=== PATIENT | male | born 1990 | race African-American/Black ===

== ENCOUNTER → 2019-08-30 11:51 | Outpatient (CLI) | payer MEDICAID, SELFPAY ==
[2019-08-30 14:05] LABS: Absolute Lymphocyte Count 2.45 X10^3/uL (0.83-4.51); Absolute Neutrophil Count 5.8 X10^3/uL (2.0-7.7); Basophil# 0.05 X10^3/uL; Basophil% 0.5 % (0-1); Eosinophil# 0.46 X10^3/uL; Eosinophils% 4.9 % (0-5); Hematocrit 46.7 % (40-54); Hemoglobin 15.1 g/dL (13.0-16.5); Lymphocyte # 2.45 X10^3/ul (4.0); Mean Corp Hgb Conc 32.3 g/dL (32-36); Mean Corpuscular Hgb 26.9 pg (27.0-32.0); Mean Corpuscular Volume 83.1 fL (80-94); Mean Platelet Vol. 10.2 fl (6.2-12.0); Monocyte# 0.63 X10^3/uL; Monocyte% 6.7 % (0-10); NRBC Flagged by Analyzer 0 % (0-5); Neutrophil % 61.5 % (47-70); Platelet Count 347 K/mm3 (150-450); RBC Distribution Width CV 13.7 % (11.6-14.6); Red Blood Count 5.62 M/mm3 (4.6-6.2); White Blood Count 9.4 K/mm3 (4.4-11.0)
[2019-08-30 14:39] LABS: ALB/GLOB Ratio 0.8 RATIO (0.9-2.4); AST(SGOT) 16 U/L (15-37); Alanine Aminotransfer ALT/SGPT 25 U/L (16-61); Albumin, Serum 3.9 g/dL (3.2-5.0); Alkaline Phosphatase 101 U/L (45-117); Anion Gap 5 (5-15); BUN 11 mg/dL (7-18); BUN/Creat Ratio 14.1 RATIO (10-20); Calcium,Total 9.4 mg/dL (8.5-10.1); Chloride 103 mmol/L (98-107); Creatinine, Serum 0.78 mg/dL (0.70-1.30); EST Glomerular Filtration Rate 124 mL/min (>60); Est Glom Filt Rate - Afr Amer 149 mL/min (>60); Globulin 4.8 g/dL (2.2-4.2); Glucose 76 mg/dL (74-106); Potassium 3.8 mmol/L (3.5-5.1); Protein, Total 8.7 g/dL (6.4-8.2); Sodium Level 139 mmol/L (136-145)
[2019-08-30 15:11] LABS: HIV - WCH Non-Reactive (Nonreactive); Hepatitis B Surface Antibody Reactive; Hepatitis B Surface Antigen Non-Reactive (Nonreactive); Hepatitis C Antibody Non-Reactive (Nonreactive); Vitamin B12 444 pg/mL (211-911)
[2019-09-01 12:10] LABS: Hepatitis B Core Ab Total Negative (Negative)
[2019-09-02 05:06] LABS: QNTFERON TB Mitogen Value > 10.00 IU/mL (.); QNTFERON TB Nil Value 0.04 IU/mL (.); QNTFERON TB1+ Ag Value 0.03 IU/mL (.); QNTFERON TB2+ Ag Value 0.05 IU/mL (.)
[2019-09-04 20:21] LABS: Hepatitis B Core AB IgM Negative (Negative); QNTIFERON TB Positive Criteria Negative (Negative); Zinc, Plasma or Serum 80 ug/dL (56-134)
[2019-09-07 01:48] LABS: Rapid Plasmin Reagin (RPR) NONREACTIVE (NONREACTIVE)
== END ==
PROVIDERS: Referring Provider Physician Assistant; Visit Provider Physician Assistant
DX: L30.9 Dermatitis, unspecified (principal)
CPT/HCPCS: 36415; 80053; 82607; 82746; 84630; 85025; 86480; 86592; 86703; 86704; 86705; 86706; 86803; 87340